=== PATIENT | female | born 1955 | race Caucasian/White ===

== ENCOUNTER 2017-01-05 04:59 | Emergency (ER) | payer OTHER ==
[2017-01-05 06:24] LABS: Urine Bacteria Absent (Absent); Urine Bilirubin Negative (Negative); Urine Glucose 1+(50 mg/dL) (Negative); Urine Nitrite Negative (Negative)
[2017-01-05 06:24] LABS: Hematocrit 39 % (35-47); Hemoglobin 13.6 g/dl (12.0-16.0); Mean Corpuscular HGB Conc 35 g/dl (31-36); Mean Corpuscular Hemoglobin 33 pg (27-31); Mean Corpuscular Volume 96 fL (80-97); Mean Platelet Volume 7 um3 (7.4-10.4); Red Cell Distribution Width 13 % (10.5-15); White Blood Count 9.8 10^3/ul (3.5-10.8)
[2017-01-05 06:40] LABS: Albumin 4.3 g/dL (3.2-5.2); BUN/Creatinine Ratio 22.5 (8-20); Calcium 9.5 mg/dL (8.6-10.3); EGFR African American 93.2 (>60); EGFR Non-African American 72.4 (>60); Globulin 3.3 g/dL (2-4); Potassium 3.4 mmol/L (3.5-5.0); Total Bilirubin 0.5 mg/dL (0.2-1.0); Total Protein 7.6 g/dL (6.4-8.9)
[2017-01-05] MEDS ORDERED: NS 0.9% 1000 ML* 1,000 ML IV ONE (06:43)
[2017-01-05] MEDS ORDERED: Levofloxacin TAB* 500 MG PO ONE (06:56)
--- NOTE | 2017-01-05 06:58 | ED ---
Carrie Saleh Thomas, scribed for Kendell Schmid on 01/05/17 at 0609 . GI/ HPI - HPI Summary HPI Summary: The pt is a 61 y/o F presenting to the ED c/o hematuria that suddenly began today at 00:00. The urine appears pink. Pt additionally c/o cough. Pt denies dysuria, abd pain, chest pain, sore throat. She describes cold symptoms over the last week. She is not on any blood thinners. - History of Current Complaint Chief Complaint: EDUrogenitalProblems Time Seen by Provider: 01/05/17 05:50 Stated Complaint: BLOOD IN URINE Hx Obtained From: Patient Onset/Duration: Started Hours Ago - onset today at 00:00, Still Present Timing: Intermittent Pain Intensity: 0 Associated Signs and Symptoms: Positive: Other: - Cough; NEGATIVE: dysuria, abd pain, chest pain, sore throat - Allergy/Home Medications Allergies/Adverse Reactions: Allergies Allergy/AdvReac Type Severity Reaction Status Date / Time local anesthetics Allergy Unknown Uncoded 01/05/17 05:15 Reaction Details PMH/Surg Hx/FS Hx/Imm Hx Previously Healthy: No Endocrine/Hematology History: Denies: Hx Diabetes Cardiovascular History: Reports: Hx Hypertension - Surgical History Surgery Procedure, Year, and Place: Local skin cancer removals Infectious Disease History: No Infectious Disease History: Denies: Traveled Outside the [place] in Last 30 Days - Family History Known Family History: Positive: Hypertension Negative: Diabetes - Social History Alcohol Use: None Hx Substance Use: No Substance Use Type: Reports: None Hx Tobacco Use: No Smoking Status (MU): Never Smoked Tobacco Review of Systems Negative: Sore Throat Negative: Chest Pain Positive: Cough Negative: Abdominal Pain Positive: hematuria. Negative: dysuria All Other Systems Reviewed And Are Negative: Yes Physical Exam - Summary Physical Exam Summary: Appearance: Well appearing, no pain distress. Skin: Warm, dry, reflects adequate perfusion. Head/face: Normal. Eyes: EOMI, SACHA. ENT: Normal. Neck: Supple, nontender. Respiratory: CTA, breath sounds present. Cardiovascular: RRR, pulses symmetrical. Abdomen: Nontender, soft. Bowel: Present. Musculoskeletal: Normal, strength/ROM intact. Neuro: Normal, sensory motor intact, A&Ox3. Triage Information Reviewed: Yes Vital Signs On Initial Exam: Initial Vitals Temp Pulse Resp BP Pulse Ox 98.2 F 107 14 146/87 98 01/05/17 05:12 01/05/17 05:12 01/05/17 05:12 01/05/17 05:12 01/05/17 05:12 Vital Signs Reviewed: Yes Diagnostics - Vital Signs Vital Signs Temp Pulse Resp BP Pulse Ox 01/05/17 05:12 98.2 F 107 14 146/87 98 - Laboratory Lab Results: Lab Results 01/05/17 01/05/17 01/05/17 Range/Units 06:00 06:12 06:12 WBC 9.8 (3.5-10.8) 10^3/ul RBC 4.10 (4.0-5.4) 10^6/ul Hgb 13.6 (12.0-16.0) g/dl Hct 39 (35-47) % MCV 96 (80-97) fL MCH 33 H (27-31) pg MCHC 35 (31-36) g/dl RDW 13 (10.5-15) % Plt Count 255 (150-450) 10^3/ul MPV 7 L (7.4-10.4) um3 Neut % (Auto) 81.1 (38-83) % Lymph % (Auto) 13.0 L (25-47) % [place] % (Auto) 5.2 (1-9) % Eos % (Auto) 0.2 (0-6) % Baso % (Auto) 0.5 (0-2) % Absolute Neuts (auto) 7.9 H (1.5-7.7) 10^3/ul Absolute Lymphs (auto) 1.3 (1.0-4.8) 10^3/ul Absolute Monos (auto) 0.5 (0-0.8) 10^3/ul Absolute Eos (auto) 0 (0-0.6) 10^3/ul Absolute Basos (auto) 0 (0-0.2) 10^3/ul Absolute Nucleated RBC 0 10^3/ul Nucleated RBC % 0 INR (Anticoag Therapy) 0.86 L (0.89-1.11) APTT 27.6 (26.0-36.3) seconds Sodium (133-145) mmol/L Potassium (3.5-5.0) mmol/L Chloride (101-111) mmol/L Carbon Dioxide (22-32) mmol/L Anion Gap (2-11) mmol/L BUN (6-24) mg/dL Creatinine (0.51-0.95) mg/dL Est GFR ( Amer) (>60) Est GFR (Non-Af Amer) (>60) BUN/Creatinine Ratio (8-20) Glucose (70-100) mg/dL Calcium (8.6-10.3) mg/dL Total Bilirubin (0.2-1.0) mg/dL AST (13-39) U/L ALT (7-52) U/L Alkaline Phosphatase (34-104) U/L Total Protein (6.4-8.9) g/dL Albumin (3.2-5.2) g/dL Globulin (2-4) g/dL Albumin/Globulin Ratio (1-3) Lipase (11.0-82.0) U/L Urine Color Bonnie Urine Appearance Cloudy Urine pH 6.0 (5-9) Ur Specific [place] 1.024 (1.010-1.030) Urine Protein 2+(100 mg/dl) H (Negative) Urine Ketones Trace H (Negative) Urine Blood 3+ H (Negative) Urine Nitrate Negative (Negative) Urine Bilirubin Negative (Negative) Urine Urobilinogen Negative (Negative) Ur Leukocyte Esterase 1+ H (Negative) Urine WBC (Auto) Trace(0-5/hpf) (Absent) Urine RBC (Auto) 3+(>10/hpf) H (Absent) Urine Bacteria Absent (Absent) Urine Glucose 1+(50 mg/dl) H (Negative) 01/05/17 Range/Units 06:12 WBC (3.5-10.8) 10^3/ul RBC (4.0-5.4) 10^6/ul Hgb (12.0-16.0) g/dl Hct (35-47) % MCV (80-97) fL MCH (27-31) pg MCHC (31-36) g/dl RDW (10.5-15) % Plt Count (150-450) 10^3/ul MPV (7.4-10.4) um3 Neut % (Auto) (38-83) % Lymph % (Auto) (25-47) % [place] % (Auto) (1-9) % Eos % (Auto) (0-6) % Baso % (Auto) (0-2) % Absolute Neuts (auto) (1.5-7.7) 10^3/ul Absolute Lymphs (auto) (1.0-4.8) 10^3/ul Absolute Monos (auto) (0-0.8) 10^3/ul Absolute Eos (auto) (0-0.6) 10^3/ul Absolute Basos (auto) (0-0.2) 10^3/ul Absolute Nucleated RBC 10^3/ul Nucleated RBC % INR (Anticoag Therapy) (0.89-1.11) APTT (26.0-36.3) seconds Sodium 134 (133-145) mmol/L Potassium 3.4 L (3.5-5.0) mmol/L Chloride 100 L (101-111) mmol/L Carbon Dioxide 26 (22-32) mmol/L Anion Gap 8 (2-11) mmol/L BUN 18 (6-24) mg/dL Creatinine 0.80 (0.51-0.95) mg/dL Est GFR ( Amer) 93.2 (>60) Est GFR (Non-Af Amer) 72.4 (>60) BUN/Creatinine Ratio 22.5 H (8-20) Glucose 151 H (70-100) mg/dL Calcium 9.5 (8.6-10.3) mg/dL Total Bilirubin 0.50 (0.2-1.0) mg/dL AST 21 (13-39) U/L ALT 24 (7-52) U/L Alkaline Phosphatase 56 (34-104) U/L Total Protein 7.6 (6.4-8.9) g/dL Albumin 4.3 (3.2-5.2) g/dL Globulin 3.3 (2-4) g/dL Albumin/Globulin Ratio 1.3 (1-3) Lipase 15 (11.0-82.0) U/L Urine Color Urine Appearance Urine pH (5-9) Ur Specific [place] (1.010-1.030) Urine Protein (Negative) Urine Ketones (Negative) Urine Blood (Negative) Urine Nitrate (Negative) Urine Bilirubin (Negative) Urine Urobilinogen (Negative) Ur Leukocyte Esterase (Negative) Urine WBC (Auto) (Absent) Urine RBC (Auto) (Absent) Urine Bacteria (Absent) Urine Glucose (Negative) Result Diagrams: 01/05/17 06:12 01/05/17 06:12 Lab Statement: Any lab studies that have been ordered have been reviewed, and results considered in the medical decision making process. GIGU Course/Dx - Course Assessment/Plan: The patient presents with gross hematuria. CT Abd/Pel is pending at time of sign out to next ED physician. She is diagnosed with gross hematuria and rule out renal mass. - Diagnoses Differential Diagnoses - Female: Diverticulitis, Neoplasm, Urinary Tract Infection, Ureteral Calculi Provider Diagnoses: Gross hematuria, rule out renal mass Discharge - Discharge Plan Condition: Fair Disposition: OTHER Discharge Disposition Comment: Sign out to next ED physician pending CT Abd/Pel awaiting dispo. Referrals: Non Staff,Doctor [Primary Care Provider] - The documentation as recorded by the Carrie lopze Thomas accurately reflects the service I personally performed and the decisions made by , Kendell Schmid.
[2017-01-05] MEDS ORDERED: Iohexol 300* (CONTRAST) 10 ML SDV IV ONE ×2 (07:07→08:38)
--- NOTE | 2017-01-05 09:35 | RAD ---
INDICATION: Gross hematuria. Question renal or bladder mass. Sore throat and cough for a couple of days. COMPARISON: No relevant prior exams available on the [facility] [place] for comparison. TECHNIQUE: Multidetector CT images were obtained from the lung bases to the ischial tuberosities with 100 mL Omnipaque 300 IV and oral contrast. Multiplanar reformation. REPORT: Minimal linear LEFT basilar atelectasis. Multiple sharply circumscribed hepatic cysts. Dominant 3.7 cm maximum dimension cyst at the central RIGHT hepatic lobe at the virgilio hepatis. Multiple adjacent hepatic cysts at the subcapsular region of the RIGHT posterior hepatic segment with a few demonstrating mild linear marginal calcification. Negative for biliary dilatation. No CT abnormality of the gallbladder. Unremarkable pancreas and spleen. Negative for CT abnormality of the upper GI, small bowel, or diminutive appendix. Enteric contrast extends to the rectum. Moderate diverticulosis primarily at the sigmoid colon without findings of diverticulitis. Negative for ascites, free air, hernias. Normal adrenal glands. 3 cm sharply circumscribed water density cortical cyst at the posterior mid to inferior pole of the LEFT kidney. Negative for suspicious focal renal lesions, urolithiasis, or hydronephrosis. Pelvic phleboliths noted including immediately adjacent to the distal RIGHT ureter. Unremarkable partially distended urinary bladder. Unremarkable uterus and adnexal regions. Reference sagittal images centered at 72 as well as coronal images centered at 45 and axial images centered at 84 there is a 6.6 cm AP by 3.9 cm transverse by 3.8 cm cephalocaudal heterogeneous density mass at the level of the inferior vagina. Negative for lymphadenopathy. Normal diameter abdominal aorta and iliac arteries. Physiologic distention of the IVC. Lumbar sacral spine degenerative spondylosis and facet joint osteoarthritis. Negative for suspicious focal osseous lesions. IMPRESSION: 1. No uroepithelial lesion or renal cortical mass evident. 2. Suggestion of a large mass at the level of the inferior vagina. Consider translabial ultrasound to differentiate between a loculated hematoma and a solid mass. 3. Negative for lymphadenopathy.
[2017-01-05 09:59] VITALS: BP 132/76
--- NOTE | 2017-01-05 11:17 | RAD ---
Indication: Labial/lower vaginal region mass on CT. Hematuria. Comparison: CT of the same date. Technique: Translabial ultrasound performed. Report: Corresponding with the mass on CT there is a RIGHT eccentric superficial mass stretching the overlying labial mucosa/skin measuring up to 6.3 x 4.6 x 4.1 cm. The mass is heterogeneous in echogenicity and demonstrates avid intrinsic vascularity on Doppler. 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 Given presentation of hematuria and appearance on CT there is suggestion of direct extension to the urethra as well as the lower vagina and perineum.
--- NOTE | 2017-01-07 08:04 | ED ---
Anibal Saleh Angela, scribed for Palmer Mosquera MD on 01/05/17 at 0727 . Progress - Progress Note Progress Note: This pt is a 61 y/o female presenting to [facility] c/o sudden onset of hematuria that began at 00:00 today. Pt is signed out by Dr. Schmid, pending disposition, awaiting CT abdomen/pelvis. Physical Exam: VITAL SIGNS: Reviewed. GENERAL: ~Patient is a well-developed and nourished (MALE OR FEMALE) who is lying comfortable in the stretcher. ~Patient is not in any acute respiratory distress. HEAD AND FACE: No signs of trauma. ~No ecchymosis, hematomas or skull depressions. No sinus tenderness. EYES: PERRLA, EOMI x 2, No injected conjunctiva, no nystagmus. EARS: Hearing grossly intact. Ear canals and tympanic membranes are within normal limits. MOUTH: Oropharynx within normal limits. NECK: Supple, trachea is midline, no adenopathy, no JVD, no carotid bruit, no c- spine tenderness, neck with full ROM. CHEST: Symmetric, no tenderness at palpation LUNGS: Clear to auscultation bilaterally. No wheezing or crackles. CVS: Regular rate and rhythm, S1 and S2 present, no murmurs or gallops appreciated. ABDOMEN: Soft, non-tender. No signs of distention. No rebound no guarding, and no masses palpated. Bowel sounds are normal. EXTREMITIES: FROM in all major joints, no edema, no cyanosis or clubbing. NEURO: Alert and oriented x 3. No acute neurological deficits. Speech is normal and follows commands. 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 External genitalia: within normal limits. No rashes, lesions or ecchymosis. There are no skin abnormalities. Speculum exam: Pt has a right vulvar mass of 4 x4 cm. Pt will be discharged to home in stable condition with a diagnosis of vulvar mass to rule out vulvar cancer. - Results/Orders Results/Orders: CT abdomen/pelvis, per radiologist: IMPRESSION: 1. No uroepithelial lesion or renal cortical mass evident. 2. Suggestion of a large mass at the level of the inferior vagina. Consider translabial ultrasound to differentiate between a loculated hematoma and a solid mass. 3. Negative for lymphadenopathy. ED physician has reviewed this radiology report and agrees. 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 Given presentation of hematuria and appearance on CT there is suggestion of direct extension to the urethra as well as the lower vagina and perineum. ED physician has reviewed this radiology report and agrees. Re-Evaluation - Re-Evaluation First Eval Re-Evaluation Time: 11:33 Comment: Pt reports feeling better and is comfortable. I reviewed the CT and US results with the pt. She is unsure of what to do with the results of the US and CT as she is going on a cross country trip tomorrow. Second Eval Re-Evaluation Time: 11:45 Comment: After I explained the options she has, she decided to follow up with Dr. Medina. Pt has no complaints at this time. She denies fever, chills, abd pain. Course/Dx - Course Course Of Treatment: This pt is a 61 y/o female presenting to [facility] c/o sudden onset of hematuria that began at 00:00 today. Pt is signed out by Dr. Schmid, pending disposition, awaiting CT abdomen/pelvis. Abdomen/pelvis CT shows 1. No uroepithelial lesion or renal cortical mass evident. 2. Suggestion of a large mass at the level of the inferior vagina. Consider translabial ultrasound to differentiate between a loculated hematoma and a solid mass. 3. Negative for lymphadenopathy. I obtained an abdomen US as recommended. 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 Given presentation of hematuria and appearance on CT there is suggestion of direct extension to the urethra as well as the lower vagina and perineum. I reviewed the CT and US results with the pt. Pt is unsure of what to do with the results of the US and CT as she is going on a cross country trip tomorrow. At this time I did a visual examination, please see physical examination. I discussed the exam with Dr. Medina who requested for the pt to be discharged to home and follow up with her in her office or [facility]. Pt will follow up with Dr. Medina. The pt was advised and emphasized that it is very important to follow up with Dr. Medina to rule out malignancy. Dr. Medina will evaluate and direct appropriate care for the pt. She understands and agrees. Before discharge , pt doesnt have abdominal pain or any other complaints. Pt is hemodynamically stable, alert and oriented x3. - Diagnoses Provider Diagnoses: Vulvar mass, rule out vulvar cancer - Provider Notifications Discussed Care Of Patient With: Bon Medina Time Discussed With Above Provider: 11:35 Instructed by Provider To: Other - I discussed the pt's case with Dr. Medina, ObGyn. She reported the pt has 2 options, either follow up with her or follow up with her ObGyn. The documentation as recorded by the Anibal lopez Angela accurately reflects the service I personally performed and the decisions made by me, Palmer Mosquera MD.
== END 2017-01-05 13:27 ==
LOC: ED 04:59
DX: N90.89 Other specified noninflammatory disorders of vulva and perineum (principal); R31.0 Gross hematuria; R05 Cough; I10 Essential (primary) hypertension; Z85.828 Personal history of other malignant neoplasm of skin; Z88.4 Allergy status to anesthetic agent
CPT/HCPCS: 36415; 74177; 76705; 80053; 81003; 81015; 83690; 85025; 85610; 85730; 87086; 99282; Q9967